=== PATIENT | female | born 1995 | race Caucasian/White ===

== ENCOUNTER 2017-04-02 14:25 | Emergency (ER) | payer MEDICAID ==
[~2017-04-02] VITALS: Ht 157.5 cm; Wt 87.1 kg
[2017-04-02 14:46] VITALS: Ht 157.5 cm; Wt 87.1 kg
[2017-04-02 18:13] VITALS: BP 106/53
== END 2017-04-02 18:13 | disposition home or self-care (01) ==
LOC: ED 14:25
DX: R10.9 Unspecified abdominal pain (principal); N94.6 Dysmenorrhea, unspecified; N92.0 Excessive and frequent menstruation with regular cycle; Z88.6 Allergy status to analgesic agent; Z91.040 Latex allergy status
CPT/HCPCS: J1200; J2270